=== PATIENT | female | born 1995 | race Two or more races ===

== ENCOUNTER 2021-08-18 19:10 | Emergency (ER) | payer BC ==
[2021-08-18 21:30] LABS: BLOOD UREA NITROGEN,BUN 10 mg/dL (7.0-18.0); CARBON DIOXIDE,CO2 26.5 mmol/L (21.0-32.0); CHLORIDE,CL 101 mmol/L (98-107); GLUCOSE RANDOM 101 mg/dL (74-106); POTASSIUM,K 3.6 mmol/L (3.5-5.1); SODIUM,NA 136 mmol/L (136-145)
== END 2021-08-18 22:56 | disposition home or self-care (01) ==
LOC: MW.ED 19:10
DX: O20.0 Threatened abortion (principal); O20.8 Other hemorrhage in early pregnancy; Z3A.08 8 weeks gestation of pregnancy; Z79.899 Other long term (current) drug therapy; Z91.041 Radiographic dye allergy status
CPT/HCPCS: 36415; 76817; 76817-26; 80053; 81003; 81025; 84702; 85025; 86900; 86901; 99284-25